=== PATIENT | male | born 1990 | race Caucasian/White ===

== ENCOUNTER 2018-07-13 03:21 | Emergency (ER) | payer MEDICAID ==
[~2018-07-13] VITALS: Wt 56.7 kg
[2018-07-13 03:25] VITALS: BP 157/102; PULSE 87; RESP 16
[2018-07-13] MEDS ORDERED: ONDANSETRON (ODT) 4 MG TAB ODT STA (05:07)
[2018-07-13] MEDS ORDERED: KETOROLAC 30 MG INJ IM STA (05:07)
--- NOTE | 2018-07-13 05:07 | ERD ---
ER Documentation Chief Complaint Chief Complaint jaw pain with nause and vomit x 3 days HPI This is a 28-year-old male who presents emergency department with complaints of left jaw pain for about 3 days. Denies scrotal pain/genital pain. Denies trauma, injury, falls. Denies punctured wounds. Denies animal bites. Denies travel to areas with bats or stray animals. Stated that he is up-to-date and is vaccinations/immunizations. Denies headache, head injury, loss of consciousness, dizziness, neck pain, neck stiffness, throat pain, difficulty swallowing, difficulty breathing lying flat, shoulder pain, chest pain, back pain, abdominal pain, nausea, vomiting, constipation, diarrhea, urinary symptoms, loss of bowel and bladder control, trauma, injury, falls, difficulty walking due to pain, numbness or tingling sensation, calf pain, recent travel, recent major surgery in the last 3 weeks, calf pain, recent long travel, recent exposure to any illness, recent antibiotic use in the last 3 months, fever, chills, seizures. Past medical history: Surgical history: Social: Denies smoking, use of alcoholic beverages, use of illegal drugs. ROS All systems reviewed and are negative except as per history of present illness. Medications Home Meds Active Scripts Ibuprofen* (Motrin*) 600 Mg Tab, 600 MG PO Q6H PRN for PAIN AND OR ELEVATED TEMP, #30 TAB Prov:HUE CEJA 07/13/18 Ondansetron Hcl* (Zofran*) 4 Mg Tablet, 4 MG PO Q8H PRN for NAUSEA AND/OR VOMITING, #30 TAB Prov:ZACKHUE NOEL 07/13/18 Amoxicillin/Potassium Clav (Amox-Clav 875-125 mg Tablet) 875-125 mg Tab, 1 TAB PO BID for 10 Days, #20 TAB Prov:HUE CEJA F 07/13/18 Allergies Allergies: Coded Allergies: No Known Allergy (Unverified , 07/13/18) Physical Exam Vitals Vital Signs Date Temp Pulse Resp B/P (MAP) Pulse Ox O2 O2 Flow FiO2 Time Delivery Rate 07/13/18 96.5 87 16 157/102 96 03:25 (120) Physical Exam Const: No acute distress. Mildly unkempt. Not aggressive. No agitation. Head: Atraumatic. Normocephalic. Eyes: Normal Conjunctiva. No visual field loss. Has good eye contact. Has good eye movement. No nystagmus. ENT: Normal External Ears, Nose and Mouth. Bilateral ears: TMs are not erythematous. No bleeding. No discharge. No hearing loss. No mastoid tenderness. Nose: Midline without deformity and without deviation. Lips/throat: No lip laceration. No signs of trauma to the lips. No lip swelling. No tongue laceration. Able to control tongue movement. No drooling. No signs of tooth avulsions. No signs of tooth decay. No signs of gum abscess. Sublingual area no swelling/tenderness. Has good gag reflex during my examination using tongue depressor. Uvula is in midline and nondisplaced. Tonsils are +1 bilaterally without redness without exudates. Tolerating secretions. Patent airway. Speaks full and clear sentences. Left jaw: Submandibular aspect has mild swelling with tenderness to palpation but has no discoloration/redness in it skin is not warm to touch. Left parotid area has no swelling/discoloration/tenderness in it skin is not warm to touch. Left shoulder has limited range of motion due to pain. Right jaw: No swelling/tenderness/discoloration in it skin is not warm to touch. No signs of direct trauma. Neck: Full range of motion. No meningismus. No nuchal rigidity. No signs of meningeal irritation. Resp: Clear to auscultation bilaterally Cardio: Regular rate and rhythm, no murmurs Abd: Soft, non tender, non distended. Normal bowel sounds Skin: No petechiae or rashes. Skin is not clammy. No vesicular lesions. Skin is intact. No signs of animal bite. No signs of punctured wounds. Back: No midline or flank tenderness. C-spine is in midline with good and full range of motion and is no swelling/deformity/bulging/point of tenderness. Ext: No cyanosis, or edema. There are no signs of trauma. Able to bear weight on left lower extremity. Able to bear weight on right lower extremity. Equal corporate statistical financial analyst. Equal strength in bilateral upper and lower extremities. Neur: Awake and alert. There are no muscle spasms or twitching. Romberg test is negative. No neurological deficits. Psych: Normal Mood and Affect. Denies auditory/visual hallucinations/delusions. Not suicidal. Not homicidal. Has the capacity to decide for himself. Has good support system at home. Results 24 hrs Current Medications Medications Dose Sig/Jennifer Start Time Status Last (Trade) Ordered Route PRN Stop Time Admin Dose Reason Admin Ondansetron 4 mg ONCE STAT 07/13/18 DC 07/13/18 HCl (Zofran ODT 05:07 05:36 Odt) 07/13/18 05:09 Ketorolac 30 mg ONCE STAT 07/13/18 DC 07/13/18 Tromethamine IM 05:07 05:38 (Toradol) 07/13/18 05:09 Famotidine 40 mg ONCE ONCE 07/13/18 DC 07/13/18 (Pepcid) PO 05:30 05:38 07/13/18 05:31 10 mg ONCE ONCE 07/13/18 DC 07/13/18 Dexamethasone IM 07:30 07:28 (Decadron) 07/13/18 07:31 Ceftriaxone 1 gm ONCE ONCE 07/13/18 DC 07/13/18 Sodium IM 07:30 07:28 (Rocephin) 07/13/18 07:31 Lidocaine 20 ml ONCE ONCE 07/13/18 DC 07/13/18 (Xylocaine SC 07:30 07:28 1% (Mdv) 20 07/13/18 07:31 ml) Procedures/MDM Discussed with my supervising physician, Kesha Frank who agreed my medical decision making. Diagnostic tests: X-ray of bilateral mandibular area: The mandibular condyles appear hypoplastic. CT is recommended for better evaluation of the mandibular anatomy. No evidence of fracture or dislocation. Treatment: Toradol. Zofran. Pepcid. Dexamethasone. Ceftriaxone. Re-evaluation: Patient was observed drinking without any difficulty in the waiting room. Patient was observed speaking and talking without any difficulty. Patient was observed comfortable in the waiting room. No drooling. Able to control tongue movement. No lip laceration. No tongue laceration. No sardonic grin/smile. Speaks full and clear sentences. Able to make needs known. Good and full range of motion of the C-spine. No nuchal rigidity. No signs of meningeal irritation. No signs of delirium. Not hypersensitive. No tremors. No seizures. Romberg test is negative. No neurological deficits. Denies auditory/visual hallucination. Not suicidal. Not homicidal. Has the capacity to decide for himself. Stated that he has good support system at home. 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 And patient denies trauma, has no fever, not tachycardic, not hypotensive, not tachypneic. Patient is appropriate for outpatient management at this time due to the following reasons: Patient was treated with NSAID/antipyretic, steroids, antibiotic, antiemetic; My reevaluation was unremarkable; No airway obstruction; Nontoxic-appearing; Hemodynamically stable. Differential diagnosis I have low suspicion for sepsis, meningitis, mastoiditis, peritonsillar abscess, mandibular fracture, LeFort/facial fracture, facial trauma, tongue laceration, tetanus, rabies, epiglottitis, 5150. Final diagnosis: Patient will be discharged and treated for joint pain and lymphadenitis. Prescription: Motrin. Zofran. Augmentin. Follow-up with PCP in the next 24-48 hours. Follow-up with ENT in the next 24- 48 hours. Come back here in the emergency department for any new symptoms or any worsening symptoms. All questions and concerns were answered. Patient and family members verbalized understanding and agreed with plan of care. Hemodynamically stable on discharge. Departure Diagnosis: Primary Impression: Jaw pain Additional Impression: Lymphadenitis Condition: Stable Additional Instructions: Follow-up with PCP in the next 24-48 hours. Follow-up with ENT in the next 24- 48 hours. Come back here in the emergency department for any new symptoms or any worsening symptoms. HUE CEJA Jul 13, 2018 05:07
[2018-07-13] MEDS ORDERED: FAMOTIDINE 20 MG TAB PO ONE (05:30)
[2018-07-13] MEDS ORDERED: IBUP-1542 PO (07:13)
[2018-07-13] MEDS ORDERED: AMOX1TAB10 PO (07:13)
[2018-07-13] MEDS ORDERED: ONDA4TAB8 PO (07:13)
[2018-07-13] MEDS ORDERED: CEFTRIAXONE 1 GM INJ IM ONE (07:30)
[2018-07-13] MEDS ORDERED: LIDOCAINE 1% (MDV) 20 ML INJ SC ONE (07:30)
[2018-07-13] MEDS ORDERED: DEXAMETHASONE 10 MG/ML 1 ML INJ IM ONE (07:30)
== END 2018-07-13 07:57 | disposition home or self-care (01) ==
LOC: FTE 03:21
DX: I88.9 Nonspecific lymphadenitis, unspecified (principal)
CPT/HCPCS: 70110; 96372; J0696; J1100; J1885; Z7502; Z7610